=== PATIENT | male | born 1970 | race African-American/Black ===

== ENCOUNTER 2020-01-27 17:05 | Emergency (ER) | payer OTHER ==
[2020-01-27] MEDS ORDERED: Oxymetazoline HCl 0.05% (30 ML BOT) ONE (17:16)
[2020-01-27] MEDS ORDERED: Metoprolol Tartrate 50 MG TAB ONE (17:17)
[2020-01-27] MEDS ORDERED: Ondansetron ODT 4 MG TAB ONE (17:21)
[2020-01-27 17:40] LABS: #Basophils 0.1 thou/uL (0.0-0.2); #Eosinphils 0.1 thou/uL (0.0-0.7); #Lymphocytes 3.2 thou/uL (1.20-3.40); #Monocytes 0.7 thou/uL (0.11-0.59); #Neutrophils 4.1 thou/uL (1.40-6.50); %Basophils 1.3 % (0.0-1.0); %Eosinophils 1.2 % (0.0-10.0); %Lymphocytes 38.9 % (21.0-51.0); %Monocytes 8.2 % (0.0-10.0); %Neutrophils 50.4 % (42.0-75.0); Hemoglobin 13.2 g/dL (14.0-18.0); Mean Corpuscular HGB CONC 31.5 g/dL (32.0-36.0); Mean Corpuscular Hemoglobin 29.1 pg (27.0-31.0); Mean Corpuscular Volume 92.3 fL (78.0-98.0); Mean Platelet Volume 8.1 fL (7.4-10.4); Platelet Count 266 thou/uL (130-400); RBC Distribution Width 14.5 % (11.5-14.5); Red Blood Cell (RBC) Count 4.53 mill/uL (4.70-6.10); White Blood Cell (WBC) Count 8.2 thou/uL (4.8-10.8)
[2020-01-27] MEDS ORDERED: Morphine 4 MG/ML VIAL ONE (19:05)
== END 2020-01-27 20:20 | disposition home or self-care (01) ==
LOC: NAV ERS 17:05
DX: R04.0 Epistaxis (principal); I10 Essential (primary) hypertension; F17.210 Nicotine dependence, cigarettes, uncomplicated
CPT/HCPCS: 30903; 85025; 96372; J2270; Q0162

== ENCOUNTER 2020-01-29 15:17 | Emergency (ER) | payer OTHER | END 2020-01-29 16:06 | disposition home or self-care (01) | LOC: NAV ERS 15:17 | DX: Z48.00 Encounter for change or removal of nonsurgical wound dressing (principal); I10 Essential (primary) hypertension; F17.210 Nicotine dependence, cigarettes, uncomplicated | CPT/HCPCS: 99282 ==